=== PATIENT | female | born 1970 | race Caucasian/White ===

== ENCOUNTER 2022-10-13 17:42 | Emergency (ER) | payer MEDICARE, SELFPAY ==
[2022-10-13 18:00] VITALS: BP 153/84; PULSE 63; RESP 20; TEMP 36.6; O2SAT 98; BMI 25.4
--- NOTE | 2022-10-13 18:08 | XR_ITS ---
PROCEDURE INFORMATION: Exam: XR Left Knee Exam date and time: 10/13/2022 6:04 PM Age: 52 years old Clinical indication: Injury or trauma; Fall; Blunt trauma; Knee; Left; Additional info: Fall. [place] pop. Twisted knee. TECHNIQUE: Imaging protocol: Radiologic exam of the left knee. Views: 3 views. COMPARISON: No relevant prior studies available. FINDINGS: Bones/joints: No acute fracture or dislocation. [id number] tricompartmental osteoarthrosis. Small suprapatellar knee effusion. Soft tissues: Normal. IMPRESSION: 1. No acute fracture or dislocation. 2. Small suprapatellar knee effusion. This could correlate with ligament injury or occult fracture.
--- NOTE | 2022-10-13 18:43 | EXP.UTC ---
Discharge Plan Disposition Patient Disposition: Home, Self-Care Condition: Good Prescriptions Prescriptions: No Action lisinopril 10 mg tablet 10 mg PO DAILY Patient Comments: TAKE 1 TABLET BY MOUTH EVERY DAY Referrals Follow up/Referrals: Jai Hill [Primary Care Provider] - See instructions Activity Restrictions/Add. Instructions Additional Instructions/Restrictions: Call for follow up with Dr. Robles (ortho)[phone] on Sunday. Ice darcie for 20 minutes 3 times a day. Do not put ice directly on skin. May take Tylenol as needed for pain. Do not start work until cleared by Dr. Robles. Wear brace while up. Clinical Impressions Clinical Impression: Acute pain of left knee Stand Alone Forms Stand Alone Forms: Work/School Release Instructions Patient Instructions: DI for Chronic Pain -- Adult Discharge ED Provider: Chel Perez [facility] General Stated complaint: AO fall 10/12, LT leg injury/pain Mode of Arrival: Ambulatory Source of Information: Patient Limitations: No Limitations Time Seen by Provider: 10/13/22 18:41 Description of Symptoms (Recalled from Triage Doc. by RN): PATIENT C/O BRUISING, SWELLING AND PAIN TO LEFT KNEE AFTER FALLING YESTERDAY. SHE STATES WHEN SHE FELL SHE TWISTED HER KNEE AND FELT A POP HEENT Symptoms (Recalled from RN notes): No Resp Symptoms (Recalled from RN notes): No Skin Symptoms (Recalled from RN notes): No MS Symptoms (Recalled from RN notes): Yes Functional Status (Recalled from RN notes): WNL History of Present Illness Provider Complaint: Pt reports that she was walking on hardwood floors and slipped and feel hitting her left knee. She notes that her knee has swollen more as the day has gone on and there is bruising and pain. She reports hearing a pop with the fall. Related Data Home Medications Medication Instructions Recorded Confirmed lisinopril 10 mg tablet 10 mg PO DAILY Hypertension 10/13/22 10/13/22 Allergies Allergy/AdvReac Type Severity Reaction Status Date / Time aspirin Allergy Verified 10/13/22 18:12 codeine Allergy Verified 10/13/22 18:12 Penicillins Allergy Verified 10/13/22 18:12 Sulfa (Sulfonamide Allergy Verified 10/13/22 18:12 Antibiotics) Worker's Comp Is this a Worker's Comp case?: No [facility] Disclaimer: The information contained in this section may have been updated after the patient was seen, as this information can be updated by other users. Medical History (Updated 10/13/22 @ 19:00 by Chel Perez APRN) Asthma COPD (chronic obstructive pulmonary disease) History of anemia Hypertension Surgical History (Updated 10/13/22 @ 18:13 by Liz Lebron RN) History of appendectomy History of breast biopsy History of hysterectomy History of tubal ligation Social History Smoking Status: Current every day smoker alcohol intake: current current occupational status: employed Travel in the last 8 weeks: None ROS Obtained: Yes All systems reviewed & no additional complaints except as documented Constitutional Constitutional: Reports system reviewed and no additional complaints, except as documented Eyes Eyes: Reports system reviewed and no additional complaints, except as documented ENT Ears, Nose, Mouth, and Throat: Reports system reviewed and no additional complaints, except as documented Cardiovascular Cardiovascular: Reports system reviewed and no additional complaints, except as documented Respiratory Respiratory: Reports system reviewed and no additional complaints, except as documented Gastrointestinal Gastrointestingal: Reports system reviewed and no additional complaints, except as documented Genitourinary Female Genitourinary: Reports system reviewed and no additional complaints, except as documented Musculoskeletal Musculoskeletal: Reports system reviewed and no additional complaints, except as documented, Reports as per HPI, Reports arthralgias, Reports joint s
[2022-10-13 19:10] VITALS: BP 153/84; PULSE 63; RESP 20; TEMP 36.6; O2SAT 98
== END 2022-10-13 19:21 | disposition home or self-care (01) ==
PROVIDERS: Emergency Provider Nurse Practitioner Family; PCP Family Medicine Addiction Medicine
DX: M25.562 Pain in left knee (principal); F17.210 Nicotine dependence, cigarettes, uncomplicated; J44.9 Chronic obstructive pulmonary disease, unspecified; I10 Essential (primary) hypertension; W01.0XXA Fall on same level from slipping, tripping and stumbling without subsequent striking against object, initial encounter
CPT/HCPCS: 73562; 99204; 99212; G0463